=== PATIENT | male | born 1965 | race Caucasian/White ===

== ENCOUNTER 2017-04-22 13:10 | Emergency (ER) | payer MEDICAID ==
[2017-04-22 13:16] VITALS: BP 153/91
== END 2017-04-22 15:56 | disposition home or self-care (01) ==
LOC: ED 13:10
DX: N45.1 Epididymitis (principal)
CPT/HCPCS: Q0092

== ENCOUNTER 2018-12-16 13:37 | Emergency (ER) | payer MEDICAID ==
[~2018-12-16] VITALS: Ht 162.6 cm; Wt 76.7 kg
[2018-12-16 14:31] VITALS: Ht 162.6 cm; Wt 76.7 kg
[2018-12-16 14:50] LABS: BASOPHIL % 0.7 % (0-2); PLATELET COUNT 370 x10^3mcL (130-400); RED CELL DISTRIBUTION WIDTH 14.7 % (11.5-14.5)
[2018-12-16 15:01] LABS: CALCIUM 8.7 mg/dL (8.5-10.1); CARBON DIOXIDE 26.8 mmol/L (21-32); CHLORIDE SERUM 102 mmol/L (98-107); CREATININE SERUM 0.9 mg/dL (0.7-1.3); GFR1 > 60 mL/min; GLUCOSE SERUM 102 mg/dL (74-106); POTASSIUM SERUM 4.1 mmol/L (3.5-5.1); SODIUM SERUM 138 mmol/L (136-145)
[2018-12-16 15:10] LABS: ALBUMIN 3.6 g/dL (3.4-5.0); ALKALINE PHOSPHATASE 87 U/L (46-116); ALT/SGPT 70 U/L (16-63); AST/SGOT 28 U/L (15-37); BILIRUBIN TOTAL 0.6 mg/dL (0.20-1.00); TOTAL PROTEIN, SERUM 7.8 g/dL (6.4-8.2)
[2018-12-16 17:59] VITALS: BP 146/101
== END 2018-12-16 17:59 | disposition home or self-care (01) ==
LOC: ED 13:37
PROVIDERS: Emergency Medicine
DX: K52.9 Noninfective gastroenteritis and colitis, unspecified (principal); K57.90 Diverticulosis of intestine, part unspecified, without perforation or abscess without bleeding; I10 Essential (primary) hypertension; Z98.890 Other specified postprocedural states
CPT/HCPCS: 36415; J1885